=== PATIENT | female | born 1965 | race Caucasian/White ===

== ENCOUNTER 2016-03-02 16:03 | Emergency (ER) | payer SELFPAY ==
[2016-03-02 16:28] VITALS: BP 132/82
== END 2016-03-02 17:05 | disposition left against medical advice (07) ==
LOC: ED 16:03
DX: Z04.3 Encounter for examination and observation following other accident (principal); Z53.21 Procedure and treatment not carried out due to patient leaving prior to being seen by health care provider

== ENCOUNTER 2016-03-03 10:34 | Emergency (ER) | payer SELFPAY ==
[2016-03-03 10:40] VITALS: BP 126/78
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
== END 2016-03-03 15:16 | disposition home or self-care (01) ==
LOC: ED 10:34
DX: S39.012A Strain of muscle, fascia and tendon of lower back, initial encounter (principal); S16.1XXA Strain of muscle, fascia and tendon at neck level, initial encounter; R51 Headache; M25.512 Pain in left shoulder; F41.9 Anxiety disorder, unspecified; V49.49XA Driver injured in collision with other motor vehicles in traffic accident, initial encounter; Y93.9 Activity, unspecified; Y99.9 Unspecified external cause status; Y92.410 Unspecified street and highway as the place of occurrence of the external cause
CPT/HCPCS: 99282